=== PATIENT | female | born 1950 | race Asian ===

== ENCOUNTER → 2016-12-05 | Outpatient (CLI) | payer MEDICARE, OTHER ==
--- NOTE | 2016-12-05 17:42 | Diagnostic Imaging Report ---
PROCEDURE: US PELVIC (NON OB) TECHNIQUE: Multiple real-time grayscale images were obtained over the pelvis in various projections transabdominally. IMPRESSION: Pelvic ultrasound. INDICATION: Pelvic pain and pressure. FINDINGS: The uterus is 8.2 x 4.2 x 3 cm. The endometrial stripe is not well seen on this exam. The patient refused transvaginal exam and this is only a transabdominal study. The urinary bladder appears unremarkable. The ovaries are obscured by bowel gas. IMPRESSION: The endometrial stripe is not well seen and an underlying abnormality cannot be evaluated. Transvaginal pelvic exam would better evaluate; however, the patient refused it. Dictated by: Dictated on workstation # [id number]
--- NOTE | 2016-12-07 08:25 | Physician Query-Final Dx ---
LEONARDO YOO 12/07/16 0825: Clinic Account Progress/Dx Physician Query: Please give diagnosis Please specify the location of the patients abd pain (ie, ruq, luq, ect..) thank you Date of Service Dec 05, 2016 at 15:30 ABELINO ZAPATA DO 12/11/16 1925: Clinic Account Progress/Dx DIAGNOSIS: Diagnosis Pelvic Pain LEONARDO YOO Dec 07, 2016 08:25 ABELINO ZAPATA DO Dec 11, 2016 19:25
== END ==
LOC: RAD 15:30
PROVIDERS: ATTEND Family Medicine
DX: R10.2 Pelvic and perineal pain (principal)
CPT/HCPCS: 76856